=== PATIENT | female | born 1955 | race African-American/Black ===

== ENCOUNTER 2022-07-05 14:07 | Inpatient (IN) | payer MEDICARE, SELFPAY ==
[2022-07-05] VITALS (18 sets, daily range): BP systolic 116–171; BP diastolic 66–102; PULSE 68–79; RESP 16–40; TEMP 36.6–39.2; O2SAT 83–100; BMI 36.8
--- NOTE | ~2022-07-05 | XR_ITS ---
EXAMINATION: XR abdomen/kub 1V INDICATION: Abdominal pain TECHNIQUE: Supine views of the abdomen were obtained on 2 radiographs. COMPARISON: None FINDINGS: The bowel gas pattern is nonspecific. No dilated loops of bowel are evident. The visualized lung bases are clear. There is moderate lumbar spondylosis. Moderate osteoarthritis is noted in the hips. IMPRESSION: 1. No radiographic correlate for the patient's symptoms. Reviewed, dictated and finalized at location F.
--- NOTE | ~2022-07-05 | XR_ITS ---
EXAMINATION: XR chest 1V portable INDICATION: Pneumonia TECHNIQUE: Portable AP chest at 0528 hours COMPARISON: 07/05/2022 FINDINGS: The right lung nodules described on comparison CT are not well demonstrated. No acute airsp audra opacities are seen. Cardiomegaly is noted. No pleural effusion or pneumothorax. IMPRESSION: 1. Cardiomegaly. 2. Lung nodules described on the comparison CT not well demonstrated. Follow-up chest CT one month is recommended. Reviewed, dictated and finalized at location A.
--- NOTE | ~2022-07-05 | XR_ITS ---
EXAMINATION: XR chest 2V 07/05/2022 15:29 INDICATION: Cough and fever. Weakness. PROCEDURE: PA and lateral views of the chest COMPARISON: No prior studies for comparison. FINDINGS: The lungs are clear. The cardiomediastinal silhouette is within normal limits. There are no pleural effusions. There is no pneumothorax suspected. IMPRESSION: 1: NO ACUTE CARDIOPULMONARY DISEASE. Reviewed, dictated and finalized at location B.
--- NOTE | ~2022-07-05 | CT_ITS ---
EXAMINATION: CTA chest PE protocol DATE: 07/05/2022 15:55 INDICATION: Shortness of breath. TECHNIQUE: Computed tomography angiography (CTA) of the chest was performed with 100 mL Omnipaque-350 intravenous contrast timed to evaluate the pulmonary arteries. Coronal maximum intensity projection 3D-reconstructions were created by the technologist. Automated exposure control and iterative reconst ruction technique were employed. The dose-length product was 798.21 mGy-cm. COMPARISON: Chest 2 views 07/05/2022 FINDINGS: The lungs demonstrate mosaic attenuation. There are tree-in-bud opacities in posterior segm ent right upper lobe. There is a 10 mm nodule in right upper lobe. There is a 19 mm nodule in anterio r segment right upper lobe with surrounding smaller nodules. No pleural effusion. Cardiomegaly is not ed. No pericardial effusion. There is a moderate-sized sliding hiatal hernia. There are acute pulmona ry emboli in the lower lobes and right upper lobe. Partially visualized is a 5.6 cm cyst in left kidn ey. There is severe cervical spondylosis and mild thoracic spondylosis. IMPRESSION: 1. Bilateral acute pulmonary emboli. I discussed this finding with Dr. Esqueda. 2. Nodules in right lung upper lobe, probably pneumonia. Malignancy cannot be excluded. Noncontrast l ow-dose chest CT is recommended in one month. 3. Moderate-sized sliding hiatal hernia. 4. Cardiomegaly. Reviewed, dictated and finalized at location A. IMPRESSION: 1. Bilateral acute pulmonary emboli. I discussed this finding with Dr. Esqueda. 2. Nodules in right lung upper lobe, probably pneumonia. Malignancy cannot be e xcluded. Noncontrast low-dose chest CT is recommended in one month. 3. Moderate-sized sliding hiatal hernia. 4. Cardiomegaly.
--- NOTE | 2022-07-05 14:31 | ECG_ITS ---
Measurements Intervals [place] Rate: 78 P: 57 FL: 171 QRS: -46 QRSD: 89 T: 75 QT: 333 QTc: 381 Interpretive Statements SINUS RHYTHM WITH OCCASIONAL SUPRAVENTRICULAR PREMATURE COMPLEXES LEFT ANTERIOR FASCICULAR BLOCK [QRS AXIS <= -45, QR IN I, RS IN II] VOLTAGE CRITERIA FOR LVH [MEETS CRITERIA IN ONE OF: R(aVL), S(V1), R(V5), R(V5/V6)+S(V1)] ST DEVIATION AND MODERATE T-WAVE ABNORMALITY, CONSIDER LATERAL ISCHEMIA [-0.1+ mV T WAVE IN I/aVL/V5/V6] NO PREVIOUS ECG AVAILABLE FOR COMPARISON Electronically Signed On 07-05-2022 18:24:43 CDT by Shayna Alejo M.D.
[2022-07-05 14:39] LABS: Basophils Percent Auto 0.3 % (0.2-1.2); Eosinophils Percent Auto 0.4 % (0-4.4); Hematocrit 43.6 % (37.0-47.0); Hemoglobin 12.8 g/dL (12.0-15.0); Immature Granulocyte Absolute 0.04 K/mm3 (0.00-0.031); Immature Granulocyte Percent A 0.5 % (0-0.5); Lymphocytes Absolute Auto 0.44 K/mm3 (0.9-3.2); Lymphocytes Percent Auto 5.7 % (18.3-44.2); Mean Corpuscular HGB Conc 29.4 g/dl (32-36); Mean Corpuscular Hemoglobin 25.2 pg (26-34); Mean Platelet Volume 10.1 fl (7.4-10.4); Monocytes Percent Auto 12.6 % (2.6-8.5); Neutrophils Absolute Auto 6.2 K/mm3 (1.3-6.7); Neutrophils Percent Auto 80.5 % (45.5-73.1); Nucleated Red Blood Cells Absolute Auto 0.1 K/mm3 (0.0-0.012); Nucleated Red Blood Cells Perc 0.6 % (0.0-0.2); Platelet Count Result 294 k/mm3 (150-375); Red Blood Count 5.07 M/mm3 (4.2-5.4); Red Cell Distribution Width 17.2 % (11.5-14.5); White Blood Count 7.7 K/mm3 (4.5-10.0)
[2022-07-05 14:49] LABS: Alanine Aminotransferase 40 U/L (6-35); Albumin Level 3.7 g/dL (3.5-5.1); Alkaline Phosphatase 172 U/L (38-126); Anion Gap 7 mmol/L (8-16); Aspartate Amino Transferase 43 U/L (14-36); Bilirubin,Total 0.8 mg/dL (0.2-1.3); Blood Urea Nitrogen 12 mg/dL (7-17); Calcium 8.3 mg/dL (8.4-10.2); Carbon Dioxide 27 mmol/L (22-30); Chloride 103 mmol/L (98-107); Estimated CRCL calculation 63 ml/min; Estimated Glomerular Filt Rate > 60; Glucose 106 mg/dL (65-110); Lipase 124 U/L (23-300); Potassium 3.9 mmol/L (3.4-5.0); Sodium 137 mmol/L (137-145)
[2022-07-05 14:59] LABS: Platelet Estimate Adequate (Adequate)
[2022-07-05 15:00] LABS: Hypochromasia 1+ (NORMAL); Schistocytes Rare (NORMAL)
[2022-07-05 15:01] LABS: Anisocytosis 2+ (NORMAL)
--- NOTE | 2022-07-05 16:00 | PC.NURSE ---
Patient ambulated to bathroom but staff did not provide her with urine cup for specimen. Patient aware that next time she is up to bathroom that we need to collect a urine specimen.
[2022-07-05] MEDS: ONDANSETRON INJ 4 MG/2 ML VIAL IV PUSH (16:13)
[2022-07-05] MEDS: SODIUM CHLORIDE 0.9% IV 500 ML 999 ML IV CONT (16:13)
--- NOTE | 2022-07-05 16:19 | ED.GENADULT ---
HPI - General Adult General Chief complaint: Nausea/Vomiting/Diarrhea Stated complaint: nausea Time Seen by Provider: 07/05/22 15:18 History of Present Illness HPI narrative: Patient is a 67-year-old female who presents ER with nausea. Reports this morning she woke up and has been profoundly more fatigued than she has been over the last couple weeks. She started having nausea without vomiting. She was found to be febrile here. Patient reports last month she was diagnosed with pulmonary embolism while she was in [facility]. Her and her travel a lot as they have a [employer] company. She was hospitalized for 8 days and discharged on anticoagulation. She has been feeling fatigued since then. She has mild shortness of breath but does not feel like it is increased. No exertional chest pain. She has mild cough that is nonproductive. No known sick contacts. Patient reports when she was diagnosed with PE she was also diagnosed with a DVT behind the left knee. Related Data Allergies Allergy/AdvReac Type Severity Reaction Status Date / Time No Known Allergies Allergy Verified 07/05/22 15:29 Review of Systems Review of Systems: All systems reviewed & are unremarkable except as noted in HPI and below Constitutional: Constitutional: Denies chills, Reports fatigue and Reports fever(s) ENT: Denies nasal congestion and Denies sore throat Cardiovascular: Cardiovascular: Denies chest pain, Denies rapid heart rate and Denies radiating jaw, neck or arm pain Respiratory: Respiratory: Reports cough, Denies dyspnea and Denies wheezing Gastrointestinal: Gastrointestinal: Denies abdominal pain, Denies diarrhea, Reports nausea and Denies vomiting PMFSH Past Medical History Medical History (Updated 07/05/22 @ 18:45 by Rodney Esqueda MD) DVT (deep venous thrombosis) Hypertension Pulmonary embolism Surgical History Surgical History (Updated 07/05/22 @ 18:42 by Rodney Esqueda MD) No pertinent past surgical history Exam Narrative: GENERAL: Well-appearing, well-nourished, and in no acute distress. HEAD: Normocephalic, atraumatic. EYES: PERRLA and EOMI. ENT: Mucous membranes moist. CHEST: Clear to auscultation. No respiratory distress. HEART: Regular rate and rhythm. Normal peripheral pulses. ABDOMEN: Soft, nontender, nondistended. EXTREMITIES: Normal range of motion. No edema. SKIN: Warm, dry, no rash. NEURO: Alert and oriented x3. PSYCH: Normal mood and affect. Course Course Emergency Course: Patient resting comfortably and still feeling quite fatigued. She has been informed of the results of her lab work as well as imaging studies. She has received IV antibiotics for pneumonia but will also receive Decadron for her COVID. Patient is still requiring supplemental O2. Hospitalist service has accepted patient for continued care. Patient has no chest pain at this time. She does report cough. Vital Signs Vital signs: Vital Signs Temperature 102.6 F H 07/05/22 14:12 Pulse Rate 78 07/05/22 14:12 Respiratory Rate 20 07/05/22 14:12 Blood Pressure 169/92 H 07/05/22 14:12 Pulse Oximetry 98 07/05/22 14:12 Oxygen Delivery Room Air 07/05/22 14:12 Temperature 102.6 F H 07/05/22 14:12 Pulse Rate 78 07/05/22 17:00 Respiratory Rate 28 H 07/05/22 17:00 Blood Pressure 171/102 H 07/05/22 17:00 Pulse Oximetry 96 07/05/22 17:14 Oxygen Delivery Nasal Cannula 07/05/22 17:14 Oxygen Flow Rate 4 07/05/22 17:14 Medical Decision Making Vital Signs Vital Signs: Vital Signs Temperature 102.6 F H 07/05/22 14:12 Pulse Rate 78 07/05/22 14:12 Respiratory Rate 20 07/05/22 14:12 Blood Pressure 169/92 H 07/05/22 14:12 Pulse Oximetry 98 07/05/22 14:12 Oxygen Delivery Room Air 07/05/22 14:12 Temperature 102.6 F H 07/05/22 14:12 Pulse Rate 78 07/05/22 17:00 Respiratory Rate 28 H 07/05/22 17:00 Blood Pressure 171/102 H 07/05/22 17:00
[2022-07-05 16:42] LABS: Influenza A QL RT-PCR Negative (Negative); Influenza B QL RT-PCR Negative (Negative); SARS-CoV-2 RNA PCR Positive
[2022-07-05 18:10] LABS: Appearance Urine Clear (Clear); Bacteria Urine None Seen /hpf; Bilirubin Urine Negative (Negative); Color Urine Yellow (Yellow); Glucose Urine UA Negative (Negative); Ketones Urine Negative (Negative); Leukocyte Esterase Ur Negative LEU/UL (Negative); Nitrate Urine Negative (Negative); Non Pathogenic Casts 0-2; Protein Urine 2+ mg/dL (Negative); RBC Urine 0-2 /hpf (0-2); Squamous Epithelial Cell Urine None seen /hpf (Few); WBC Urine 0-5 /hpf; pH Urine 5.5 (5.0-9.0)
[2022-07-05 18:13] LABS: Specific Grav Ur 1.046 (1.001-1.035)
[2022-07-05 18:14] LABS: Add Urine Microscopic? YES
[2022-07-05 19:16] LABS: Alveolar/Arterial O2 Gradient 153.7 mmHg; Base Excess ABG 0.3 mEq/l (+/-2.0); Carboxyhemoglobin 0.7 % THb (0-2.0); Device NASAL CANNULA; Fractional Inspired Oxygen 36 %; HCO3 ABG 24.3 mEq/l (22.0-26.0); Methemoglobin ABG 0.3 %THb (0-1.5); Oxygen Content ABG 16.1 %vol (16.0-22.0); Oxygen Saturation ABG 91.7 % (95.0-100.0); Oxyhemoglobin 88.6 % THb (90.0-100.0); PCO2 ABG 37.4 mmHg (35.0-45.0); PO2 ABG 59.6 mmHg (80.0-100.0); PO2 FiO2 Ratio Arterial Blood 1.66 %; Reduced Hemoglobin 10.4 %THb (0-5.0); Site Drawn LEFT BRACHIAL; Total Hemoglobin 12.9 g/dL (12.0-18.0); pH ABG 7.431 (7.350-7.450)
--- NOTE | 2022-07-05 20:06 | PM.IMHP ---
H&P: HPI History of Present Illness Date/Time: 07/05/22 20:06 Chief Complaint: Nausea vomiting diarrhea Narrative: This is a 67-year-old female patient who came to the emergency room with complaint of nausea. The patient has been very fatigued over the last couple weeks. The patient has been traveling with her for his job. The patient had been to [place] as well as [place] recently. The patient has been having nausea without vomiting. The patient was diagnosed with a pulmonary embolism when she was in [facility]. The patient had been hospitalized for 8 days and was discharged on anticoagulation. The patient has been very fatigue since then. She has some mild shortness of breath and does not feel that it has gotten any worse. The patient has a mild cough that is nonproductive. Patient was also found to have DVT behind her left knee. Patient was found to be afebrile in the emergency room. Chest CTA was read as the following. Bilateral acute pulmonary emboli. I discussed this finding with Dr. Esqueda. 2. Nodules in right lung upper lobe, probably pneumonia. Malignancy cannot be excluded. Noncontrast low-dose chest CT is recommended in one month. 3. Moderate-sized sliding hiatal hernia. 4. Cardiomegaly. Initially the patient was given azithromycin and Rocephin for pneumonia. However the patient was found to be positive for COVID. The patient is currently on oxygen at 4 L per nasal cannula. The patient was started on Decadron. She is asking if she can get REMdezivir. The patient stated that she has only received 1 maderma vaccine. Currently her AST is 43 ALT is 40 alkaline phosphatase 172 and total protein 6.0. The patient being admitted to observation status the date of service 07/06/2019 Review of Systems Review of Systems: All systems reviewed & are unremarkable except as noted in HPI and below Constitutional: Constitutional: Reports as per HPI and Reports no additional constitutional complaints Eyes: Eyes: Reports as per HPI and Reports no additional eye complaints ENT: Reports system reviewed and no additional complaints, except as documented and Reports Normal hearing present Cardiovascular: Cardiovascular: Reports no additional cardiovascular complaints Respiratory: Respiratory: Reports no additional respiratory complaints and Reports no additional respiratory complaints Gastrointestinal: Gastrointestinal: Reports as per HPI and Reports no additional gastrointestinal complaints Musculoskeletal: Musculoskeletal: Reports no additional musculoskeletal complaints Integumentary/Breasts: Skin/Breast: Reports system reviewed and no additional complaints, except as docu and Reports as per HPI Neurologic: Reports system reviewed and no additional complaints, except as documented, Reports as per HPI and Reports Normal hearing present Psychiatric: Psychiatric: Reports no additional psychiatric complaints and Reports as per HPI Endocrine: Endocrine: Reports no additional endocrine complaints Hematologic/Lymphatic: Hematologic/Lymphatic: Reports no additional hematologic/lymphatic complaints Allergic/Immunologic: Allergic/Immunologic: Reports no additional allergic/immunologic complaints [facility] Past Medical History Medical History (Updated 07/06/22 @ 00:29 by Ne Arias NP) Chronic GERD DVT (deep venous thrombosis) Hypertension Pulmonary embolism Surgical History Surgical History (Updated 07/06/22 @ 00:26 by Ne Arias NP) H/O: hysterectomy Family History Family History (Updated 07/05/22 @ 20:08 by Ne Arias NP) Mother Hypertension Sibling Hypertension Social History Social History (Updated 07/06/22 @ 00:27 by Ne Arias NP) Social History: She lives with her . 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 She has 6 children . She is retired. She continues to smoke Code status full code Smoking packs per day: 0.01 Smoking cigarette
[2022-07-05] MEDS: ACETAMINOPHEN 325 MG TABLET 650 MG PO (22:12)
[2022-07-06] VITALS (11 sets, daily range): BP systolic 104–127; BP diastolic 64–78; PULSE 54–58; RESP 18–22; TEMP 36–37.1; O2SAT 94–100
[2022-07-06 00:59] LABS: Alanine Aminotransferase 42 U/L (6-35); Estimated CRCL calculation 61 ml/min; Estimated Glomerular Filt Rate > 60
[2022-07-06 01:01] LABS: INR 1.5; Prothrombin Time 17.7 Seconds (11.1-14.7)
[2022-07-06] MEDS: REMDESIVIR 200 MG/NS 250 ML 200 MG/250 ML BAG 250 MG IVPB (01:30)
[2022-07-06 06:44] LABS: Basophils Percent Auto 0.3 % (0.2-1.2); Hematocrit 43.9 % (37.0-47.0); Hemoglobin 12.9 g/dL (12.0-15.0); Immature Granulocyte Absolute 0.05 K/mm3 (0.00-0.031); Immature Granulocyte Percent A 0.6 % (0-0.5); Lymphocytes Absolute Auto 0.78 K/mm3 (0.9-3.2); Lymphocytes Percent Auto 10.1 % (18.3-44.2); Mean Corpuscular HGB Conc 29.4 g/dl (32-36); Mean Corpuscular Hemoglobin 24.9 pg (26-34); Mean Corpuscular Volume 84.6 fl (80-100); Mean Platelet Volume 10.1 fl (7.4-10.4); Monocytes Absolute Auto 0.8 K/mm3 (0.1-0.6); Neutrophils Absolute Auto 6.1 K/mm3 (1.3-6.7); Nucleated Red Blood Cells Perc 0.3 % (0.0-0.2); Platelet Count Result 275 k/mm3 (150-375); Red Blood Count 5.19 M/mm3 (4.2-5.4); White Blood Count 7.7 K/mm3 (4.5-10.0)
[2022-07-06 07:09] LABS: Lactic Acid Reflex 1.2 mmol/L (0.7-2.0)
[2022-07-06 07:11] LABS: Alanine Aminotransferase 41 U/L (6-35); Albumin Level 3.7 g/dL (3.5-5.1); Alkaline Phosphatase 156 U/L (38-126); Anion Gap 5 mmol/L (8-16); Aspartate Amino Transferase 49 U/L (14-36); Bilirubin,Total 0.7 mg/dL (0.2-1.3); Blood Urea Nitrogen 14 mg/dL (7-17); Calcium 8.2 mg/dL (8.4-10.2); Carbon Dioxide 31 mmol/L (22-30); Chloride 103 mmol/L (98-107); Estimated CRCL calculation 61 ml/min; Estimated Glomerular Filt Rate > 60; Glucose 115 mg/dL (65-110); Magnesium 1.7 mg/dL (1.6-2.3); Potassium 3.8 mmol/L (3.4-5.0); Sodium 139 mmol/L (137-145)
[2022-07-06 07:26] LABS: Burr Cells 1+ (NORMAL); Platelet Estimate Adequate (Adequate)
[2022-07-06 07:27] LABS: Poikilocytosis 1+ (NORMAL); Schistocytes None Seen (NORMAL)
[2022-07-06 08:14] LABS: Thyroid Stimulating Hormone Reflex 0.173 uIU/mL (0.465-4.68)
[2022-07-06] MEDS: APIXABAN 5 MG TABLET PO ×2 (08:38→16:24)
[2022-07-06] MEDS: amLODIPine BESYLATE 5 MG TABLET PO (08:38)
[2022-07-06] MEDS: METOPROLOL SUCCINATE EXT REL 100 MG TABCR PO (08:39)
[2022-07-06] MEDS: SENNOSIDES 8.6 MG TABLET PO (08:39)
[2022-07-06] MEDS: LOSARTAN POTASSIUM 25 MG TABLET PO (08:39)
[2022-07-06] MEDS: PANTOPRAZOLE SODIUM IV 40 MG VIAL IV PUSH ×2 (08:39→21:25)
[2022-07-06] MEDS: SPIRONOLACTONE 25 MG TABLET PO (08:40)
[2022-07-06] MEDS: AMIODARONE HCL 200 MG TABLET PO ×2 (08:40→16:24)
[2022-07-06] MEDS: ASPIRIN 81 MG CHEWABLE TABLET PO (09:41)
[2022-07-06 10:33] LABS: Hepatitis B Surface Antigen Negative (Negative)
[2022-07-06 10:39] LABS: HAV RESULT Negative (Negative); Hepatitis B Core IgM Result Negative (Negative)
[2022-07-06 10:51] LABS: Hepatitis C Virus Antibody Negative (Negative)
[2022-07-06 10:55] LABS: Free T4 Free Thyroxine Reflex 1.53 ng/dL (0.78-2.19)
[2022-07-06 12:53] LABS: Total Triiodothyronine (T3) 0.67 NG/ML (0.97-1.69)
--- NOTE | 2022-07-06 14:00 | P.PNIM_ITS ---
Progress Note: A&P Assessment and Plan (1) COVID: Code(s): U07.1 - COVID-19 Status: Acute Assessment and Plan: * Present with mild shortness of breath with a cough * Chest xray No acute cardiopulmonary disease * CT indicated PNA nodules to the right lung upper lobe, probably PNA * ABG shows respiratory alkalosis * Test positive for COVID on 07/05/22 * Remdesivir and dexamethasone Day 2 * Currently on supplemental oxygen, 4L, wean supplemental oxygen as indicated * Keep sats above 90% * Trend labs (2) Pneumonia: Code(s): J18.9 - Pneumonia, unspecified organism Status: Acute Assessment and Plan: * CT indicated multiple nodules, and opacities * Supplemental oxygen, wean to maintain saturations >90% * repeat chest xray for signs of improvement * added azithromycin and ceftriaxone for now * add neb treatments * trend respiratory status * sputum culture ordered (3) Pulmonary embolism: Code(s): I26.99 - Other pulmonary embolism without acute cor pulmonale Status: Acute Assessment and Plan: * Diagnosed with PE and DVT what appears to be at the end of the May * Continue Eliquis as it is likely the same event * Most likely from being in a car for long periods of time with her * Could be contributing to the shortness of breath and supplemental oxygen need * Trend respiratory status * supplemental oxygen wean to maintain saturations >90% (4) DVT (deep venous thrombosis): Code(s): I82.409 - Acute embolism and thrombosis of unspecified deep veins of unspecified lower extremity Status: Acute Assessment and Plan: * Same plan as above (5) Hypertension: Code(s): I10 - Essential (primary) hypertension Status: Acute Assessment and Plan: * BP is 113/78 * Continue with Norvasc, Pacerone, losartan, and metoprolol * trend BP * adjust therapy as indicated (6) Chronic GERD: Code(s): K21.9 - Gastro-esophageal reflux disease without esophagitis Status: Acute Assessment and Plan: * Continue with pantoprazole Plan Abdominal pain -KUB ordered -Lactulose, miralax, colace ordered Time Spent With Patient Time: 52 minutes Time with patient: Greater than 35 minutes Subjective Date/time seen: 07/06/22 1400 Interval history: 07/06/22 1400 Patient is lying in bed. She appears to be doing okay. She still is requiring roughly 2 L of oxygen currently. She denies any chest pain, shortness a breath, nausea, vomiting, diarrhea constipation. She is complaining of a little bit of abdominal pain in the right upper quadrant area. She did state that it hurts really bad and that she has like a lump there. Talked to her who had a much questions and did answer all his questions appropriately. Also explained to her the next plan of care and updated her with all findings. On a side note she did state that she has had a DVT in the past. She stated that she was on a course of anticoagulants for 6 months then was taken off the medications. Currently she is stable. 07/05/22? 20:06 This is a 67-year-old female patient who came to the emergency room with complaint of nausea.? The patient has been very fatigued
--- NOTE | 2022-07-06 14:00 | PM.IMPN ---
Progress Note: A&P Assessment and Plan (1) COVID: Code(s): U07.1 - COVID-19 Status: Acute Assessment and Plan: Present with mild shortness of breath with a cough Chest xray No acute cardiopulmonary disease CT indicated PNA nodules to the right lung upper lobe, probably PNA ABG shows respiratory alkalosis Test positive for COVID on 07/05/22 Remdesivir and dexamethasone Day 2 Currently on supplemental oxygen, 4L, wean supplemental oxygen as indicated Keep sats above 90% Trend labs (2) Pneumonia: Code(s): J18.9 - Pneumonia, unspecified organism Status: Acute Assessment and Plan: CT indicated multiple nodules, and opacities Supplemental oxygen, wean to maintain saturations >90% repeat chest xray for signs of improvement added azithromycin and ceftriaxone for now add neb treatments trend respiratory status sputum culture ordered (3) Pulmonary embolism: Code(s): I26.99 - Other pulmonary embolism without acute cor pulmonale Status: Acute Assessment and Plan: Diagnosed with PE and DVT what appears to be at the end of the May Continue Eliquis as it is likely the same event Most likely from being in a car for long periods of time with her Could be contributing to the shortness of breath and supplemental oxygen need Trend respiratory status supplemental oxygen wean to maintain saturations >90% (4) DVT (deep venous thrombosis): Code(s): I82.409 - Acute embolism and thrombosis of unspecified deep veins of unspecified lower extremity Status: Acute Assessment and Plan: Same plan as above (5) Hypertension: Code(s): I10 - Essential (primary) hypertension Status: Acute Assessment and Plan: BP is 113/78 Continue with Norvasc, Pacerone, losartan, and metoprolol trend BP adjust therapy as indicated (6) Chronic GERD: Code(s): K21.9 - Gastro-esophageal reflux disease without esophagitis Status: Acute Assessment and Plan: Continue with pantoprazole Plan Abdominal pain -KUB ordered -Lactulose, miralax, colace ordered Time Spent With Patient Time: 52 minutes Time with patient: Greater than 35 minutes Subjective Date/time seen: 07/06/22 1400 Interval history: 07/06/22 1400 Patient is lying in bed. She appears to be doing okay. She still is requiring roughly 2 L of oxygen currently. She denies any chest pain, shortness a breath, nausea, vomiting, diarrhea constipation. She is complaining of a little bit of abdominal pain in the right upper quadrant area. She did state that it hurts really bad and that she has like a lump there. Talked to her who had a much questions and did answer all his questions appropriately. Also explained to her the next plan of care and updated her with all findings. On a side note she did state that she has had a DVT in the past. She stated that she was on a course of anticoagulants for 6 months then was taken off the medications. Currently she is stable. 07/05/22? 20:06 This is a 67-year-old female patient who came to the emergency room with complaint of nausea.? The patient has been very fatigued over the last couple weeks.? The patient has been traveling with her for his job.? The patient had been to [place] as well as [place] recently.? The patient has been having nausea without vomiting.? The patient was diagnosed with a pulmonary embolism when she was in [facility].? The patient had been hospitalized for 8 days and was discharged on anticoagulation.? The patient has been very fatigue since then.? She has some mild shortness of breath and does not feel that it has gotten any worse.? The patient has a mild cough that is nonproductive.? Patient was also found to have DVT behind her left knee.? Patient w
--- NOTE | 2022-07-06 14:24 | PCCCNOTE ---
On 07/06/22, the student, [Lani Chatman ], provided care and [facility]. I have reviewed the student's documentation and agree with the findings.
[2022-07-06] MEDS: LACTULOSE 20 GM/30 ML UDC PO (16:24)
[2022-07-06] MEDS: polyethylene glycoL 3350 17 GM POWD.PACK PO (16:24)
[2022-07-06] MEDS: REMDESIVIR 100 MG/NS 250 ML 100 MG/250 ML BAG 250 MG IVPB (21:25)
[2022-07-07] VITALS (9 sets, daily range): BP systolic 118–131; BP diastolic 58–81; PULSE 54–68; RESP 18–20; TEMP 36–36.7; O2SAT 94–98
[2022-07-07 05:19] LABS: Basophils Percent Auto 0.1 % (0.2-1.2); Eosinophils Percent Auto 0.1 % (0-4.4); Hematocrit 39.9 % (37.0-47.0); Immature Granulocyte Absolute 0.03 K/mm3 (0.00-0.031); Immature Granulocyte Percent A 0.4 % (0-0.5); Lymphocytes Absolute Auto 1.39 K/mm3 (0.9-3.2); Lymphocytes Percent Auto 16.4 % (18.3-44.2); Mean Corpuscular HGB Conc 30.1 g/dl (32-36); Mean Corpuscular Hemoglobin 24.9 pg (26-34); Mean Platelet Volume 10.3 fl (7.4-10.4); Monocytes Percent Auto 11.9 % (2.6-8.5); Neutrophils Absolute Auto 6.1 K/mm3 (1.3-6.7); Neutrophils Percent Auto 71.1 % (45.5-73.1); Nucleated Red Blood Cells Perc 0.2 % (0.0-0.2); Platelet Count Result 271 k/mm3 (150-375); Red Blood Count 4.81 M/mm3 (4.2-5.4); Red Cell Distribution Width 16.9 % (11.5-14.5); White Blood Count 8.5 K/mm3 (4.5-10.0)
[2022-07-07 05:26] LABS: Alanine Aminotransferase 35 U/L (6-35); Albumin Level 3.2 g/dL (3.5-5.1); Alkaline Phosphatase 133 U/L (38-126); Anion Gap 6 mmol/L (8-16); Aspartate Amino Transferase 38 U/L (14-36); Bilirubin,Total 0.5 mg/dL (0.2-1.3); Blood Urea Nitrogen 22 mg/dL (7-17); Calcium 7.9 mg/dL (8.4-10.2); Carbon Dioxide 26 mmol/L (22-30); Chloride 105 mmol/L (98-107); Estimated CRCL calculation 67 ml/min; Estimated Glomerular Filt Rate > 60; Glucose 96 mg/dL (65-110); Magnesium 1.8 mg/dL (1.6-2.3); Potassium 3.7 mmol/L (3.4-5.0); Sodium 137 mmol/L (137-145)
[2022-07-07 06:36] LABS: INR 1.2; Prothrombin Time 14.9 Seconds (11.1-14.7)
[2022-07-07] MEDS: AMIODARONE HCL 200 MG TABLET PO ×2 (09:13→17:14)
[2022-07-07] MEDS: ASPIRIN 81 MG CHEWABLE TABLET PO (09:13)
[2022-07-07] MEDS: LACTULOSE 20 GM/30 ML UDC PO (09:14)
[2022-07-07] MEDS: METOPROLOL SUCCINATE EXT REL 100 MG TABCR PO (09:14)
[2022-07-07] MEDS: amLODIPine BESYLATE 5 MG TABLET PO (09:14)
[2022-07-07] MEDS: LOSARTAN POTASSIUM 25 MG TABLET PO (09:14)
[2022-07-07] MEDS: APIXABAN 5 MG TABLET PO ×2 (09:14→17:14)
[2022-07-07] MEDS: PANTOPRAZOLE SODIUM IV 40 MG VIAL IV PUSH ×2 (09:15→21:17)
[2022-07-07] MEDS: polyethylene glycoL 3350 17 GM POWD.PACK PO (09:15)
[2022-07-07] MEDS: SENNOSIDES 8.6 MG TABLET PO (09:15)
[2022-07-07] MEDS: SPIRONOLACTONE 25 MG TABLET PO (09:15)
--- NOTE | 2022-07-07 15:57 | P.PNIM_ITS ---
Progress Note: A&P Assessment and Plan (1) COVID: Code(s): U07.1 - COVID-19 Status: Acute Assessment and Plan: * Present with mild shortness of breath with a cough * Chest xray No acute cardiopulmonary disease * CT indicated PNA nodules to the right lung upper lobe, probably PNA * ABG shows respiratory alkalosis * Test positive for COVID on 07/05/22 * Remdesivir and dexamethasone Day 3 * Currently on supplemental oxygen, 4L, wean supplemental oxygen as indicated * Keep sats above 90% * Trend labs (2) Pneumonia: Code(s): J18.9 - Pneumonia, unspecified organism Status: Acute Assessment and Plan: * CT indicated multiple nodules, and opacities * Supplemental oxygen, wean to maintain saturations >90% * repeat chest xray for signs of improvement * added azithromycin and ceftriaxone for now * add neb treatments * trend respiratory status * sputum culture mixed bacterial joey * Repeat chest x-ray in the morning (3) Pulmonary embolism: Code(s): I26.99 - Other pulmonary embolism without acute cor pulmonale Status: Acute Assessment and Plan: * Diagnosed with PE and DVT what appears to be at the end of the May * Continue Eliquis as it is likely the same event * Most likely from being in a car for long periods of time with her * Could be contributing to the shortness of breath and supplemental oxygen need * Trend respiratory status * supplemental oxygen wean to maintain saturations >90% (4) DVT (deep venous thrombosis): Code(s): I82.409 - Acute embolism and thrombosis of unspecified deep veins of unspecified lower extremity Status: Acute Assessment and Plan: * Same plan as above (5) Hypertension: Code(s): I10 - Essential (primary) hypertension Status: Acute Assessment and Plan: * BP is 118/71 * Continue with Norvasc, Pacerone, losartan, and metoprolol * trend BP * adjust therapy as indicated (6) Chronic GERD: Code(s): K21.9 - Gastro-esophageal reflux disease without esophagitis Status: Acute Assessment and Plan: * Continue with pantoprazole Plan Abdominal pain -KUB no indications for the pain -Lactulose, miralax, colace ordered Time Spent With Patient Time: 48 minutes Time with patient: Greater than 35 minutes Subjective Date/time seen: 07/07/22 15:57 Interval history: 07/07/22 1600 patient is doing well. She denies any current complaints including chest pain, shortness a breath, nausea, vomiting, diarrhea or constipation. 07/06/22 1400 Patient is lying in bed. She appears to be doing okay. She still is requiring roughly 2 L of oxygen currently. She denies any chest pain, shortness a breath, nausea, vomiting, diarrhea constipation. She is complaining of a little bit of abdominal pain in the right upper quadrant area. She did state that it hurts really bad and that she has like a lump there. Talked to her who had a much questions and did answer all his questions appropriately. Also explained to her the next plan of care and updated her with all findings. On a side note she did state that she has had a DVT in the past. She stated that she was on a course of antic
--- NOTE | 2022-07-07 15:57 | PM.IMPN ---
Progress Note: A&P Assessment and Plan (1) COVID: Code(s): U07.1 - COVID-19 Status: Acute Assessment and Plan: Present with mild shortness of breath with a cough Chest xray No acute cardiopulmonary disease CT indicated PNA nodules to the right lung upper lobe, probably PNA ABG shows respiratory alkalosis Test positive for COVID on 07/05/22 Remdesivir and dexamethasone Day 3 Currently on supplemental oxygen, 4L, wean supplemental oxygen as indicated Keep sats above 90% Trend labs (2) Pneumonia: Code(s): J18.9 - Pneumonia, unspecified organism Status: Acute Assessment and Plan: CT indicated multiple nodules, and opacities Supplemental oxygen, wean to maintain saturations >90% repeat chest xray for signs of improvement added azithromycin and ceftriaxone for now add neb treatments trend respiratory status sputum culture mixed bacterial joey Repeat chest x-ray in the morning (3) Pulmonary embolism: Code(s): I26.99 - Other pulmonary embolism without acute cor pulmonale Status: Acute Assessment and Plan: Diagnosed with PE and DVT what appears to be at the end of the May Continue Eliquis as it is likely the same event Most likely from being in a car for long periods of time with her Could be contributing to the shortness of breath and supplemental oxygen need Trend respiratory status supplemental oxygen wean to maintain saturations >90% (4) DVT (deep venous thrombosis): Code(s): I82.409 - Acute embolism and thrombosis of unspecified deep veins of unspecified lower extremity Status: Acute Assessment and Plan: Same plan as above (5) Hypertension: Code(s): I10 - Essential (primary) hypertension Status: Acute Assessment and Plan: BP is 118/71 Continue with Norvasc, Pacerone, losartan, and metoprolol trend BP adjust therapy as indicated (6) Chronic GERD: Code(s): K21.9 - Gastro-esophageal reflux disease without esophagitis Status: Acute Assessment and Plan: Continue with pantoprazole Plan Abdominal pain -KUB no indications for the pain -Lactulose, miralax, colace ordered Time Spent With Patient Time: 48 minutes Time with patient: Greater than 35 minutes Subjective Date/time seen: 07/07/22 15:57 Interval history: 07/07/22 1600 patient is doing well. She denies any current complaints including chest pain, shortness a breath, nausea, vomiting, diarrhea or constipation. 07/06/22 1400 Patient is lying in bed. She appears to be doing okay. She still is requiring roughly 2 L of oxygen currently. She denies any chest pain, shortness a breath, nausea, vomiting, diarrhea constipation. She is complaining of a little bit of abdominal pain in the right upper quadrant area. She did state that it hurts really bad and that she has like a lump there. Talked to her who had a much questions and did answer all his questions appropriately. Also explained to her the next plan of care and updated her with all findings. On a side note she did state that she has had a DVT in the past. She stated that she was on a course of anticoagulants for 6 months then was taken off the medications. Currently she is stable. 07/05/22? 20:06 This is a 67-year-old female patient who came to the emergency room with complaint of nausea.? The patient has been very fatigued over the last couple weeks.? The patient has been traveling with her for his job.? The patient had been to [place] as well as [place] recently.? The patient has been having nausea without vomiting.? The patient was diagnosed with a pulmonary embolism when she was in [facility].? The patient had been hospitalized for 8 days and was discharged on anticoagulation.? The patient has bee
[2022-07-07] MEDS: REMDESIVIR 100 MG/NS 250 ML 100 MG/250 ML BAG 250 MG IVPB (21:17)
[2022-07-08] VITALS (8 sets, daily range): BP systolic 112–137; BP diastolic 73–82; PULSE 51–95; RESP 16–20; TEMP 36.3–36.6; O2SAT 92–97
[2022-07-08 06:21] LABS: Basophils Percent Auto 0.2 % (0.2-1.2); Eosinophils Percent Auto 0.1 % (0-4.4); Hemoglobin 12.7 g/dL (12.0-15.0); Immature Granulocyte Absolute 0.04 K/mm3 (0.00-0.031); Immature Granulocyte Percent A 0.4 % (0-0.5); Lymphocytes Absolute Auto 1.67 K/mm3 (0.9-3.2); Lymphocytes Percent Auto 18.2 % (18.3-44.2); Mean Corpuscular HGB Conc 30.2 g/dl (32-36); Mean Corpuscular Hemoglobin 25.4 pg (26-34); Mean Platelet Volume 10.1 fl (7.4-10.4); Monocytes Absolute Auto 0.6 K/mm3 (0.1-0.6); Monocytes Percent Auto 6.7 % (2.6-8.5); Neutrophils Absolute Auto 6.8 K/mm3 (1.3-6.7); Neutrophils Percent Auto 74.4 % (45.5-73.1); Nucleated Red Blood Cells Perc 0.4 % (0.0-0.2); Platelet Count Result 252 k/mm3 (150-375); Red Cell Distribution Width 17.1 % (11.5-14.5); White Blood Count 9.2 K/mm3 (4.5-10.0)
[2022-07-08 06:32] LABS: INR 1.2; Prothrombin Time 14.7 Seconds (11.1-14.7)
[2022-07-08 07:05] LABS: Alanine Aminotransferase 35 U/L (6-35); Albumin Level 3.4 g/dL (3.5-5.1); Alkaline Phosphatase 139 U/L (38-126); Anion Gap 9 mmol/L (8-16); Aspartate Amino Transferase 38 U/L (14-36); Bilirubin,Total 0.6 mg/dL (0.2-1.3); Blood Urea Nitrogen 22 mg/dL (7-17); Calcium 8.1 mg/dL (8.4-10.2); Carbon Dioxide 24 mmol/L (22-30); Chloride 104 mmol/L (98-107); Estimated CRCL calculation 61 ml/min; Estimated Glomerular Filt Rate > 60; Glucose 123 mg/dL (65-110); Magnesium 1.6 mg/dL (1.6-2.3); Potassium 3.5 mmol/L (3.4-5.0); Sodium 137 mmol/L (137-145)
[2022-07-08] MEDS: LACTULOSE 20 GM/30 ML UDC PO (08:18)
[2022-07-08] MEDS: ASPIRIN 81 MG CHEWABLE TABLET PO (08:18)
[2022-07-08] MEDS: PANTOPRAZOLE SODIUM IV 40 MG VIAL IV PUSH ×2 (08:18→21:11)
[2022-07-08] MEDS: SPIRONOLACTONE 25 MG TABLET PO (08:18)
[2022-07-08] MEDS: APIXABAN 5 MG TABLET PO ×2 (08:18→16:55)
[2022-07-08] MEDS: METOPROLOL SUCCINATE EXT REL 100 MG TABCR PO (08:18)
[2022-07-08] MEDS: AMIODARONE HCL 200 MG TABLET PO ×2 (08:18→17:02)
[2022-07-08] MEDS: amLODIPine BESYLATE 5 MG TABLET PO (08:18)
[2022-07-08] MEDS: SENNOSIDES 8.6 MG TABLET PO (08:18)
[2022-07-08] MEDS: polyethylene glycoL 3350 17 GM POWD.PACK PO (08:19)
[2022-07-08] MEDS: LOSARTAN POTASSIUM 25 MG TABLET PO (08:19)
[2022-07-08] MEDS: MAGNESIUM SULF 4 GM/WATER100ML 4 GM/100 ML BAG IVPB (12:23)
--- NOTE | 2022-07-08 13:15 | P.PNIM_ITS ---
Progress Note: A&P Assessment and Plan (1) COVID: Code(s): U07.1 - COVID-19 Status: Acute Assessment and Plan: * Present with mild shortness of breath with a cough * Chest xray No acute cardiopulmonary disease * CT indicated PNA nodules to the right lung upper lobe, probably PNA * ABG shows respiratory alkalosis * Test positive for COVID on 07/05/22 * Remdesivir and dexamethasone Day 4 * was able to be weaned to room air * Keep sats above 90% * Trend labs (2) Pneumonia: Code(s): J18.9 - Pneumonia, unspecified organism Status: Acute Assessment and Plan: * CT indicated multiple nodules, and opacities * Supplemental oxygen, wean to maintain saturations >90% * repeat chest xray lung nodules as seen in the CT, follow up CT in one month * Continue azithromycin and ceftriaxone, change to PO at this time * add neb treatments * trend respiratory status * sputum culture mixed bacterial ojey (3) Pulmonary embolism: Code(s): I26.99 - Other pulmonary embolism without acute cor pulmonale Status: Acute Assessment and Plan: * Diagnosed with PE and DVT what appears to be at the end of the May * Continue Eliquis as it is likely the same event * Most likely from being in a car for long periods of time with her * Could be contributing to the shortness of breath and supplemental oxygen need * Trend respiratory status * supplemental oxygen wean to maintain saturations >90% (4) DVT (deep venous thrombosis): Code(s): I82.409 - Acute embolism and thrombosis of unspecified deep veins of unspecified lower extremity Status: Acute Assessment and Plan: * Same plan as above (5) Hypertension: Code(s): I10 - Essential (primary) hypertension Status: Acute Assessment and Plan: * BP is 134/80 * Continue with Norvasc, Pacerone, losartan, and metoprolol * trend BP * adjust therapy as indicated (6) Chronic GERD: Code(s): K21.9 - Gastro-esophageal reflux disease without esophagitis Status: Acute Assessment and Plan: * Continue with pantoprazole (7) Pulmonary nodule: Code(s): R91.1 - Solitary pulmonary nodule Status: Acute Assessment and Plan: * CT found nodule * Xray still showed nodule * Will have patient complete full course of antibiotics * Repeat CT in one month Plan Abdominal pain -KUB no indications for the pain -Lactulose, miralax, colace ordered Time Spent With Patient Time: 37 minutes Time with patient: Greater than 35 minutes Subjective Date/time seen: 07/08/22 13:15 Interval history: 07/08/22 1315 Patient is resting in bed. She was talking to her sister on the phone. Discussed with her about the next steps of her care. She is to get her last dose of remdesivir tonight. She denies any current chest pain, shortness of breath nausea, vomiting, diarrhea or constipation. Also spoke with the patient regarding about the nodules found on her CT and xray. 07/07/22 1600 patient is doing well. She denies any current complaints including chest pain, shortness a breath, nausea, vomiting, diarrhea or constipation.
--- NOTE | 2022-07-08 13:15 | PM.IMPN ---
Progress Note: A&P Assessment and Plan (1) COVID: Code(s): U07.1 - COVID-19 Status: Acute Assessment and Plan: Present with mild shortness of breath with a cough Chest xray No acute cardiopulmonary disease CT indicated PNA nodules to the right lung upper lobe, probably PNA ABG shows respiratory alkalosis Test positive for COVID on 07/05/22 Remdesivir and dexamethasone Day 4 was able to be weaned to room air Keep sats above 90% Trend labs (2) Pneumonia: Code(s): J18.9 - Pneumonia, unspecified organism Status: Acute Assessment and Plan: CT indicated multiple nodules, and opacities Supplemental oxygen, wean to maintain saturations >90% repeat chest xray lung nodules as seen in the CT, follow up CT in one month Continue azithromycin and ceftriaxone, change to PO at this time add neb treatments trend respiratory status sputum culture mixed bacterial joey (3) Pulmonary embolism: Code(s): I26.99 - Other pulmonary embolism without acute cor pulmonale Status: Acute Assessment and Plan: Diagnosed with PE and DVT what appears to be at the end of the May Continue Eliquis as it is likely the same event Most likely from being in a car for long periods of time with her Could be contributing to the shortness of breath and supplemental oxygen need Trend respiratory status supplemental oxygen wean to maintain saturations >90% (4) DVT (deep venous thrombosis): Code(s): I82.409 - Acute embolism and thrombosis of unspecified deep veins of unspecified lower extremity Status: Acute Assessment and Plan: Same plan as above (5) Hypertension: Code(s): I10 - Essential (primary) hypertension Status: Acute Assessment and Plan: BP is 134/80 Continue with Norvasc, Pacerone, losartan, and metoprolol trend BP adjust therapy as indicated (6) Chronic GERD: Code(s): K21.9 - Gastro-esophageal reflux disease without esophagitis Status: Acute Assessment and Plan: Continue with pantoprazole (7) Pulmonary nodule: Code(s): R91.1 - Solitary pulmonary nodule Status: Acute Assessment and Plan: CT found nodule Xray still showed nodule Will have patient complete full course of antibiotics Repeat CT in one month Plan Abdominal pain -KUB no indications for the pain -Lactulose, miralax, colace ordered Time Spent With Patient Time: 37 minutes Time with patient: Greater than 35 minutes Subjective Date/time seen: 07/08/22 13:15 Interval history: 07/08/22 1315 Patient is resting in bed. She was talking to her sister on the phone. Discussed with her about the next steps of her care. She is to get her last dose of remdesivir tonight. She denies any current chest pain, shortness of breath nausea, vomiting, diarrhea or constipation. Also spoke with the patient regarding about the nodules found on her CT and xray. 07/07/22 1600 patient is doing well. She denies any current complaints including chest pain, shortness a breath, nausea, vomiting, diarrhea or constipation. 07/06/22 1400 Patient is lying in bed. She appears to be doing okay. She still is requiring roughly 2 L of oxygen currently. She denies any chest pain, shortness a breath, nausea, vomiting, diarrhea constipation. She is complaining of a little bit of abdominal pain in the right upper quadrant area. She did state that it hurts really bad and that she has like a lump there. Talked to her who had a much questions and did answer all his questions appropriately. Also explained to her the next plan of care and updated her with all findings. On a side note she did state that she has had a DVT in the past. She stated that she was on a course of anticoagulants for 6 mon
[2022-07-08] MEDS: REMDESIVIR 100 MG/NS 250 ML 100 MG/250 ML BAG 250 MG IVPB (21:11)
[2022-07-09 05:24] VITALS: BP 157/88; PULSE 52; RESP 20; TEMP 36.5; O2SAT 98
[2022-07-09 05:48] LABS: Basophils Percent Auto 0.3 % (0.2-1.2); Eosinophils Percent Auto 0.1 % (0-4.4); Hematocrit 41.9 % (37.0-47.0); Hemoglobin 12.8 g/dL (12.0-15.0); Immature Granulocyte Absolute 0.06 K/mm3 (0.00-0.031); Immature Granulocyte Percent A 0.8 % (0-0.5); Lymphocytes Absolute Auto 1.78 K/mm3 (0.9-3.2); Lymphocytes Percent Auto 23.3 % (18.3-44.2); Mean Corpuscular HGB Conc 30.5 g/dl (32-36); Mean Corpuscular Hemoglobin 25.4 pg (26-34); Mean Corpuscular Volume 83.3 fl (80-100); Mean Platelet Volume 9.9 fl (7.4-10.4); Monocytes Absolute Auto 0.9 K/mm3 (0.1-0.6); Monocytes Percent Auto 11.8 % (2.6-8.5); Neutrophils Absolute Auto 4.9 K/mm3 (1.3-6.7); Neutrophils Percent Auto 63.7 % (45.5-73.1); Nucleated Red Blood Cells Perc 0.4 % (0.0-0.2); Platelet Count Result 240 k/mm3 (150-375); Red Blood Count 5.03 M/mm3 (4.2-5.4); Red Cell Distribution Width 16.9 % (11.5-14.5); White Blood Count 7.7 K/mm3 (4.5-10.0)
[2022-07-09 05:59] LABS: INR 1.2; Prothrombin Time 14.9 Seconds (11.1-14.7)
[2022-07-09 06:01] LABS: Alanine Aminotransferase 32 U/L (6-35); Albumin Level 3.4 g/dL (3.5-5.1); Alkaline Phosphatase 131 U/L (38-126); Anion Gap 6 mmol/L (8-16); Aspartate Amino Transferase 35 U/L (14-36); Bilirubin,Total 0.6 mg/dL (0.2-1.3); Blood Urea Nitrogen 19 mg/dL (7-17); Carbon Dioxide 27 mmol/L (22-30); Chloride 101 mmol/L (98-107); Estimated CRCL calculation 75 ml/min; Estimated Glomerular Filt Rate > 60; Glucose 89 mg/dL (65-110); Magnesium 2.1 mg/dL (1.6-2.3); Potassium 3.8 mmol/L (3.4-5.0); Sodium 134 mmol/L (137-145)
[2022-07-09 08:55] VITALS: BP 138/70; PULSE 54; RESP 18; O2SAT 100
[2022-07-09] MEDS: polyethylene glycoL 3350 17 GM POWD.PACK PO (08:57)
[2022-07-09] MEDS: PANTOPRAZOLE SODIUM IV 40 MG VIAL IV PUSH (08:57)
[2022-07-09] MEDS: LOSARTAN POTASSIUM 25 MG TABLET PO (08:57)
[2022-07-09] MEDS: LACTULOSE 20 GM/30 ML UDC PO (08:57)
[2022-07-09] MEDS: amLODIPine BESYLATE 5 MG TABLET PO (08:57)
[2022-07-09] MEDS: ASPIRIN 81 MG CHEWABLE TABLET PO (08:57)
[2022-07-09] MEDS: APIXABAN 5 MG TABLET PO (08:57)
[2022-07-09] MEDS: SPIRONOLACTONE 25 MG TABLET PO (08:57)
[2022-07-09] MEDS: SENNOSIDES 8.6 MG TABLET PO (08:58)
--- NOTE | 2022-07-09 09:00 | P.DS_ITS ---
DS: Admitting Diagnosis Discharge Date 07/09/22 0900 Admitting Diagnosis Acute on chronic pulmonary edema, COVID DS: Discharge Diagnosis Discharge Diagnosis (1) COVID: Code(s): U07.1 - COVID-19 Status: Acute Assessment and Plan: * Present with mild shortness of breath with a cough * Chest xray No acute cardiopulmonary disease * CT indicated PNA nodules to the right lung upper lobe, probably PNA * ABG shows respiratory alkalosis * Test positive for COVID on 07/05/22 * Remdesivir completed course and dexamethasone Day 5 * was able to be weaned to room air * Keep sats above 90% * Trend labs (2) Pneumonia: Code(s): J18.9 - Pneumonia, unspecified organism Status: Acute Assessment and Plan: * CT indicated multiple nodules, and opacities * Supplemental oxygen, wean to maintain saturations >90% * repeat chest xray lung nodules as seen in the CT, follow up CT in one month * Continue azithromycin and ceftriaxone, change to PO at this time * add neb treatments * trend respiratory status * sputum culture mixed bacterial joey (3) Pulmonary embolism: Code(s): I26.99 - Other pulmonary embolism without acute cor pulmonale Status: Acute Assessment and Plan: * Diagnosed with PE and DVT what appears to be at the end of the May * Continue Eliquis as it is likely the same event * Most likely from being in a car for long periods of time with her * Could be contributing to the shortness of breath and supplemental oxygen need * Trend respiratory status * supplemental oxygen wean to maintain saturations >90% (4) DVT (deep venous thrombosis): Code(s): I82.409 - Acute embolism and thrombosis of unspecified deep veins of unspecified lower extremity Status: Acute Assessment and Plan: * Same plan as above (5) Hypertension: Code(s): I10 - Essential (primary) hypertension Status: Acute Assessment and Plan: * BP is 157/88 * Continue with Norvasc, Pacerone, losartan, and metoprolol * trend BP * adjust therapy as indicated (6) Chronic GERD: Code(s): K21.9 - Gastro-esophageal reflux disease without esophagitis Status: Acute Assessment and Plan: * Continue with pantoprazole (7) Pulmonary nodule: Code(s): R91.1 - Solitary pulmonary nodule Status: Acute Assessment and Plan: * CT found nodule * Xray still showed nodule * Will have patient complete full course of antibiotics * Repeat CT in one month Plan Abdominal pain -KUB no indications for the pain -Lactulose, miralax, colace ordered DS: Summary Hospital Course Hospital Course: Patient is 67-year-old female with a past medical history of PE DVT hypertension, AFib, who presented to the ED with complaints fatigue, shortness of breath. Patient recently been admitted to the hospital for PE and DVT. Patient was started on Eliquis at that time. CTA of the chest was performed and showed bilateral acute pulmonary emboli and nodule in the right upper lung. Patient was given IV antibiotics for pneumonia and Eliquis was continued as she was just started about 3 weeks ago. Patient also tested positive for COVID and
--- NOTE | 2022-07-09 09:00 | PM.DS ---
DS: Admitting Diagnosis Discharge Date 07/09/22 0900 Admitting Diagnosis Acute on chronic pulmonary edema, COVID DS: Discharge Diagnosis Discharge Diagnosis (1) COVID: Code(s): U07.1 - COVID-19 Status: Acute Assessment and Plan: Present with mild shortness of breath with a cough Chest xray No acute cardiopulmonary disease CT indicated PNA nodules to the right lung upper lobe, probably PNA ABG shows respiratory alkalosis Test positive for COVID on 07/05/22 Remdesivir completed course and dexamethasone Day 5 was able to be weaned to room air Keep sats above 90% Trend labs (2) Pneumonia: Code(s): J18.9 - Pneumonia, unspecified organism Status: Acute Assessment and Plan: CT indicated multiple nodules, and opacities Supplemental oxygen, wean to maintain saturations >90% repeat chest xray lung nodules as seen in the CT, follow up CT in one month Continue azithromycin and ceftriaxone, change to PO at this time add neb treatments trend respiratory status sputum culture mixed bacterial joey (3) Pulmonary embolism: Code(s): I26.99 - Other pulmonary embolism without acute cor pulmonale Status: Acute Assessment and Plan: Diagnosed with PE and DVT what appears to be at the end of the May Continue Eliquis as it is likely the same event Most likely from being in a car for long periods of time with her Could be contributing to the shortness of breath and supplemental oxygen need Trend respiratory status supplemental oxygen wean to maintain saturations >90% (4) DVT (deep venous thrombosis): Code(s): I82.409 - Acute embolism and thrombosis of unspecified deep veins of unspecified lower extremity Status: Acute Assessment and Plan: Same plan as above (5) Hypertension: Code(s): I10 - Essential (primary) hypertension Status: Acute Assessment and Plan: BP is 157/88 Continue with Norvasc, Pacerone, losartan, and metoprolol trend BP adjust therapy as indicated (6) Chronic GERD: Code(s): K21.9 - Gastro-esophageal reflux disease without esophagitis Status: Acute Assessment and Plan: Continue with pantoprazole (7) Pulmonary nodule: Code(s): R91.1 - Solitary pulmonary nodule Status: Acute Assessment and Plan: CT found nodule Xray still showed nodule Will have patient complete full course of antibiotics Repeat CT in one month Plan Abdominal pain -KUB no indications for the pain -Lactulose, miralax, colace ordered DS: Summary Hospital Course Hospital Course: Patient is 67-year-old female with a past medical history of PE DVT hypertension, AFib, who presented to the ED with complaints fatigue, shortness of breath. Patient recently been admitted to the hospital for PE and DVT. Patient was started on Eliquis at that time. CTA of the chest was performed and showed bilateral acute pulmonary emboli and nodule in the right upper lung. Patient was given IV antibiotics for pneumonia and Eliquis was continued as she was just started about 3 weeks ago. Patient also tested positive for COVID and remdesivir along with dexamethasone was given and doses of remdesivir has been completed. Supplemental oxygen was indicated upon arrival at 4 L. currently patient was able to tolerate being weaned to room air. Currently patient has no complaints. She did have some constipation issues along with left lower abdominal pain. X-ray was performed did not show any current abnormalities. Currently symptoms have resolved and patient is stable for discharge at this time per labs and vital signs. Patient will be discharged with dexamethasone x5 days along with antibiotics for a full 10 day course to treat the pneumonia. Patient has been instructed about movemen
[2022-07-09 09:02] VITALS: PULSE 52
[2022-07-09] MEDS: AMIODARONE HCL 200 MG TABLET PO (09:02)
[2022-07-09 09:03] VITALS: PULSE 52
== END 2022-07-09 13:05 | disposition home or self-care (01) | DRG 177 ==
LOC: ANHED 18:45 → ANH2MED 22:06
PROVIDERS: Nurse Practitioner; Admitting Provider Family Medicine; Emergency Provider Emergency Medicine; Visit Provider Nurse Practitioner
DX: U07.1 COVID-19 (principal); I26.99 Other pulmonary embolism without acute cor pulmonale; J12.82 Pneumonia due to coronavirus disease 2019; I82.402 Acute embolism and thrombosis of unspecified deep veins of left lower extremity; I10 Essential (primary) hypertension; K21.9 Gastro-esophageal reflux disease without esophagitis; R91.1 Solitary pulmonary nodule; F17.210 Nicotine dependence, cigarettes, uncomplicated; Z79.01 Long term (current) use of anticoagulants
CPT/HCPCS: 36415; 36600; 71045; 71046; 71275; 74018; 80053; 80074; 81001; 82375; 82565; 82805; 83050; 83605; 83690; 83735; 84439; 84443; 84460; 84480; 85025; 85610; 86140; 87040; 87070; 87205; 87636; 93005; 96375; 96376; A9270; C9113; G0378; J0248; J0456; J0696; J1100; J2405; J3475; J7040; Q9967